=== PATIENT | male | born 1930 | race Caucasian/White ===

== ENCOUNTER 2016-06-21 20:20 | Inpatient (IN) | payer OTHER ==
--- NOTE | ~2016-06-21 | DS ---
Discharge Summary [facility] [address] [place]. [address] NAME: FRANCINE DIEGO : 30 STATUS : DIS IN PAT#: [id number] AGE: 85 ADM/REG DATE : 06/21/16 MR#: [id number] REPORT SERV DATE: 06/24/16 DICTATED BY: LISA STERLING DATE: 06/24/16 REPORT STATUS : Draft TRANSCRIBED BY: MODL DATE: 06/24/16 ADMISSION DATE: 06/21/2016 DISCHARGE DATE: 06/24/2016 REASON FOR ADMISSION: Direct admission from [facility] for pseudocyst. HPI: Please refer to Dr. Price's history and physical dated 06/21/2016 for complete details regarding the patient's admission. In brief, the patient was admitted to the Hospitalist Service for management of his pseudocyst. HOSPITAL COURSE: The patient had an uncomplicated hospital course. The patient had a recent PCI with drug-eluting stent done approximately a week ago by Dr. Chicas for an acute coronary syndrome. At that point in time, he had a CT scan of his chest which did show some pancreatic pseudocysts. He was discharged from [facility] to home and had been doing okay. He then presented to [facility] ER on the 06/21/2016 from his PCP's office after being short of breath and having abdominal pain. They did a CT scan of the abdomen and pelvis without contrast in the emergency room which showed a pseudocyst and the patient was taken as a direct admission for management and evaluation of pseudocyst. Dr. Asencio with GI Medicine was consulted. Records were obtained from [facility]. Dr. Cruz was also consulted who was asked at the request of Dr. Ho to cover the patient while he was in- house. After discussing with Dr. Asencio, the patient needed a pancreatic stent for his pseudocyst, however, it was deemed to be too high risk given the fact that he could not be off his aspirin and Plavix and he just had a drug-eluting stent placed a week ago. Dr. Asencio stated that since the patient was improving, and he did not have any obstructive symptoms, it is best to hold off on doing any type of procedure, especially since the Plavix would need to be held for approximately 10 days, five days preprocedure and then five days after the procedure, and Dr. Asencio had recommended followup in three weeks for discussion and had signed off. The patient remained on aspirin and Plavix throughout the hospitalization. Dr. Price had started him on IV antibiotics for questionable pneumonia, but he did not have one since he did not have any cough or fever or leukocytosis. He did have some mild epigastric pain, but said that he felt much better after getting diuresed and having some bowel movements. He is not complaining of any shortness of breath. He has reached maximal hospitalization and will be discharged to home today in a stable condition. DISCHARGE DIAGNOSES: Acute pancreatitis, resolving pancreatic pseudocyst, too high risk for any intervention at this time; coronary artery disease, status post MD, status post PCI with drug-eluting stent approximately a week ago, currently on aspirin and Plavix, hyperlipidemia, no pneumonia, hypertension, AAA. PROCEDURES: Include consultation, Dr. Asencio and Dr. Cruz. DISCHARGE MEDICATIONS: Include aspirin 81 mg once a day, Lipitor 80 mg daily, carvedilol 3.125 mg twice a day, Plavix 75 mg daily, famotidine twice a day, insulin glargine 10 units twice a day, captopril 6.25 mg daily, metformin 500 mg twice a day, Ventolin p.r.n., Nitrostat p.r.n., [place] p.r.n., Lasix 40 mg alternate one to two tablets every other day. Discharge Summary [address] [address] NAME: FRANCINE DIEGO : 30 STATUS : DIS IN PAT#: [id number] AGE: 85 ADM/REG DATE : 06/21/16 MR#: [id number] REPORT SERV DATE: 06/24/16 DICTATED BY: LISA STERLING DATE: 06/24/16 REPORT STATUS : Draft TRANSCRIBED BY: MODL DATE: 06/24/16 FOLLOWUP: The patient will follow up with Dr. Chicas as scheduled and Leodan TOUSSAINT in three weeks for discussion of a possible stent placement. This is Dr. Lisa Sterling spending over 30 minutes in discharge planning and coordination of care. STEPHANIE/RERE Lisa Sterling MD / [id number] CC: MD Nick Zhao M.D. Chad Charapata, M.D. Calvin Bell, M.D.
--- NOTE | ~2016-06-21 | CN ---
Consultation Report [facility] [address]. [address] NAME: RAFAEL BUSTAMANTE : 30 STATUS : ADM IN PAT#: [id number] AGE: 85 ADM/REG DATE : 06/21/16 MR#: [id number] REPORT SERV DATE: 06/22/16 DICTATED BY: MIKE GOLDBERG DATE: 06/22/16 REPORT STATUS : Draft TRANSCRIBED BY: MODL DATE: 06/22/16 GI CONSULTATION DATE OF CONSULTATION: 06/22/2016 REASON FOR CONSULTATION: Evaluation and management of abdominal pain, CT evidence of large pancreatic pseudocyst. HISTORY OF PRESENT ILLNESS: Mr. Rafael Bustamante is an 85-year-old male patient, who has been seen by Dr. Breen in the past for colonoscopy, who presented to [facility] on 06/21/2016 as a transfer from [facility] secondary to abdominal pain and CT evidence of large pancreatic pseudocyst. The patient has a recent history of being inpatient at [facility] from 06/13/2016 to 06/15/2016. He was admitted there for chest pain. He underwent a cardiac cath with Dr. Chicas, was found to have a blockage requiring drug-eluting stent placement done on 06/14/2016. The patient has a history of previous stents and he is at present on a regimen of Plavix and aspirin. He states that he had some mild abdominal discomfort on admission to [facility], but it worsened after his cardiac catheterization. He did have a CT scan done at [facility] on 06/13/2016. CT of the chest showing pancreatic enlargement and mild peripancreatic soft tissue stranding/small pancreatic calcifications and hypodense masses (fluid density), which may be industrial sales representative of cyst. No pancreatic ductal dilation. LFTs were normal there. No lipase was obtained. The recommendation is for a CT with contrast. He was subsequently discharged. He states that his abdominal pain has worsened thus prompting him to see his primary care physician yesterday who sent him to [facility]'s Emergency Room. He had a CT scan done at [facility] which this is all by reading the history of present illness. The CT was done with IV and oral contrast showing a "huge pseudocyst" which was abutting the stomach with multiple other small pseudocysts in his pancreas, one left renal cyst, questionable sigmoid diverticulosis with questionable diverticulitis, abdominal aortic aneurysm with questionable thrombosis at the abdominal aortic aneurysm, but no official report has been sent. CT disc has been sent. Imaging has been uploaded but not viewed yet. He states to me this morning on rounding that his abdominal distention and pain has improved following three bowel movements. He is still moderately diffusely tender throughout. He was able to tolerate clear liquids. He has a white blood cell count presently at 13.3 and amylase of 246 with a lipase of 4700 and total bilirubin normal at 0.6. The patient states he has a history of pancreatitis five years ago and states "I have never had another problem with it." I have discussed with him that we will await evaluation by Dr. Chicas, his primary java mobile developer, who placed a stent last week, in regard to holding his Plavix and aspirin for the endoscopy with endoscopic ultrasound, possible drain placement. However, this is all dependent upon review of his CT as well as Cardiology input. PAST MEDICAL HISTORY: Positive for pancreatitis, pancreatic calcifications, type 2 diabetes, coronary artery disease, chest pain, recent cardiac cath undergoing drug-eluting stent placement on 06/14/2016 under the direction of Dr. Chicas at [facility], pneumonia, questionable diverticulitis, diverticulosis, colon polyps, CHF, last ejection Consultation Report [address] [address] NAME: RAFAEL BUSTAMANTE : 30 STATUS : ADM IN [facility]#: [id number] AGE: 85 ADM/REG DATE : 06/21/16 MR#: [id number] REPORT SERV DATE: 06/22/16 DICTATED BY: MIKE GOLDBERG DATE: 06/22/16 REPORT STATUS : Draft TRANSCRIBED BY: MODMaryann DATE: 06/22/16 fraction according to records was 20%, and history of TIA. PAST SURGICAL HISTORY: Includes the cardiac cath, appendectomy, and cholecystectomy. SOCIAL HISTORY: Past tobacco. No alcohol. No illicits. and still lives independently with his . FAMILY HISTORY: Noncontributory from a GI standpoint. ALLERGIES: HE HAS NO KNOWN ALLERGIES. HOME MEDICATIONS: Ventolin HFA, aspirin, Lipitor, Capoten, Coreg, Plavix, Pepcid, [place], Lantus, Glucophage, and nitroglycerin. REVIEW OF SYSTEMS: A 10-point review of systems has been obtained with pertinent positives being addressed in the history of present illness. PHYSICAL EXAMINATION: VITAL SIGNS: Temperature 98.4, pulse 80, respirations 17, and blood pressure 108/52. NEUROLOGIC: Reveals an alert male, resting in bed with no focal deficits. Awake, alert, and oriented x3. GENERAL: Cooperative, no acute distress. HEAD, EARS, EYES, NOSE, AND THROAT: Anicteric. Pupils are equal, round, and reactive to light and accommodation. Normocephalic and atraumatic. NECK: Supple. No JVD. No palpable nodes. LUNGS: Clear in the upper lobes. Diminished bilaterally in the bases. Normal respiratory effort exhibited, however, shallow inspiratory effort. CARDIOVASCULAR SYSTEM: Regular rate and rhythm. ABDOMEN: Distended adjm-vo-qnbgrmby with tenderness to palpation, mild diffuse, without rebound or guarding. He has active bowel sounds. No organomegaly was appreciated. EXTREMITIES: No edema. Normal distal pulses. SKIN: Warm, dry, and intact. PERTINENT LABORATORY DATA: Sodium 138, potassium 4.1, BUN 19, creatinine is 1.1. White count 13.3, hemoglobin 9.5, hematocrit 29.5, platelets 259. Total bilirubin 0.6, alkaline phosphatase 86, ALT 13, AST 16, lipase 4705, and amylase 246. ASSESSMENT: 1. Pancreatitis with pancreatic pseudocyst abutting the stomach by CT scan at [facility]. 2. Abdominal pain and distention secondary to #1. 3. Coronary artery disease and chest pain with recent cardiac cath and drug-eluting stent placement on 06/14/2016 at [facility], on dual anti-platelet therapy, Plavix, and aspirin. Consultation Report [address] [place]. [address] NAME: RAFAEL BUSTAMANTE : 30 STATUS : ADM IN PAT#: [id number] AGE: 85 ADM/REG DATE : 06/21/16 MR#: [id number] REPORT SERV DATE: 06/22/16 DICTATED BY: MIKE GOLDBERG DATE: 06/22/16 REPORT STATUS : Draft TRANSCRIBED BY: MODL DATE: 06/22/16 4. Shortness of breath and dyspnea. 5. Abdominal aortic aneurysm. 6. Questionable diverticulitis by CT scan at [facility], presently on Flagyl and Rocephin. PLAN: 1. We will await Cardiology input regarding holding Plavix and aspirin. 2. Follow up CT scan from [facility] with Dr. Asencio. 3. IV fluids, pain and nausea control. We will follow. IVETH/RERE [place] NINFA Greco / [id number] CC: MD Nick Zhao M.D.
--- NOTE | ~2016-06-21 | CN ---
Consultation Report [facility] [address] [place]. [address] NAME: RAFAEL DIEGO : 30 STATUS : ADM IN [facility]#: [id number] AGE: 85 ADM/REG DATE : 06/21/16 MR#: [id number] REPORT SERV DATE: 06/23/16 DICTATED BY: ERON ESCOBAR DATE: 06/22/16 REPORT STATUS : Draft TRANSCRIBED BY: MODL DATE: 06/22/16 DATE OF CONSULTATION: 06/22/2016 REFERRING PHYSICIAN: Dr. Ryan Ho. HISTORY OF PRESENT ILLNESS: Mr. Rafael diego is an 85-year-old gentleman with past medical history significant for coronary artery disease and apparent ischemic cardiomyopathy. He is status post multiple stents. The last reported ejection fraction was approximately 20%. He has a cardiac defibrillator. The patient reports that his most recent stent was done last week by Dr. Chicas secondary to myocardial infarction. He has a stent card which shows this to be a Xience Alpine stent which is an everolimus drug-eluting stent. I was asked to see the patient secondary to a large pancreatic pseudocyst which needs draining. I was asked to address the patient regarding Plavix withdrawal. REVIEW OF SYSTEMS: The patient currently denies any chest pain. He reports that he has some shortness of breath which apparently at his baseline. His main complaint is abdominal pain. He denies any genitourinary or neurologic complaints. PAST MEDICAL HISTORY: As noted above significant for ischemic cardiomyopathy status post multiple stents, most recent which was 06/14/[address] Chicas at [facility]. This was a drug-eluting stent to the circumflex. The patient also with history of implanted cardiac defibrillator. The patient has last ejection fraction approximately 20%. He has remote history of TIA. He has type 2 diabetes. He has had a history of pancreatitis and pancreatic calcifications. The patient is status post appendectomy and cholecystectomy. SOCIAL HISTORY: The patient no longer smokes. FAMILY HISTORY: Noncontributory. ALLERGIES: THE PATIENT HAS NO KNOWN DRUG ALLERGIES. MEDICATIONS: See list. PHYSICAL EXAMINATION: VITAL SIGNS: Stable. The patient is afebrile. GENERAL: This is a well-developed, well-nourished, 85-year-old white male, alert and oriented x3, in no acute distress. NECK: No jugular venous distention, hepatojugular reflux, or carotid bruits. CARDIOVASCULAR: Normal rate with regular rhythm. PMI is inferiorly and laterally displaced. There is a 1/6 systolic murmur heard best at the left upper sternal border. LUNGS: Clear to auscultation. However, breath sounds are diminished in bases. EXTREMITIES: Reveal no clubbing, cyanosis, or edema. ABDOMEN: Slightly distended and mildly tender. Consultation Report [address] [place]. [address] NAME: RAFAEL DIEGO : 30 STATUS : ADM IN PAT#: [id number] AGE: 85 ADM/REG DATE : 06/21/16 MR#: [id number] REPORT SERV DATE: 06/23/16 DICTATED BY: ERON ESCOBAR DATE: 06/22/16 REPORT STATUS : Draft TRANSCRIBED BY: RERE DATE: 06/22/16 EKG shows atrial tracking with ventricular pacing. ASSESSMENT: 1. Pancreatitis with pancreatic pseudocyst. Awaiting intervention by GI. 2. Coronary artery disease status post recent cardiac catheterization with drug-eluting stent, on anti-platelet therapy, Plavix, and aspirin. 3. Congestive heart failure with reduced ejection fraction. 4. Status post automated implantable cardioverter defibrillator. PLAN: If Plavix needs to be discontinued, then the patient will need to be covered with heparin (or Lovenox). It will Plavix approximately 5 days to be back to baseline as far as platelet function. The heparin could then be held the day of the procedure and restart it immediately afterwards. The Plavix should be restarted after things are deemed stable from a GI perspective. I appreciate your consultation on this complex patient. I will follow him with you. /RERE Eron Escobar M.D., [facility] / [id number] CC: MD Nick Zhao M.D. Calvin Bell, M.D. Joseph Sledge III, M.D. Michael C Allan, M.D.
--- NOTE | ~2016-06-21 | HP ---
History And Physical [id number] [place]. [address] NAME: FRANCINE BUSTAMANTE : 30 STATUS : ADM IN PAT#: [id number] AGE: 85 ADM/REG DATE : 06/21/16 MR#: [id number] REPORT SERV DATE: 06/21/16 DICTATED BY: CODY BANKS DATE: 06/21/16 REPORT STATUS : Draft TRANSCRIBED BY: MODL DATE: 06/21/16 DATE OF ADMISSION: 06/21/2016 HISTORY OF PRESENT ILLNESS: The patient is an 85-year-old male who was sent as a direct transfer from [facility]. [facility] physician spoke with Cardiology. The patient basically was seen in [facility] by Dr. Cobb, emergency room doctor, and according to his note, the patient was sent from Dr. Savage's for bradycardia and abdominal distention to [facility]. I also spoke with emergency room physician, Dr. Cobb, later when patient had already arrived here, and he told me that the patient had a CT scan done with IV and oral contrast at [facility] today, and he was found to have a huge pseudocyst which was pressing on his stomach as well as multiple other smaller pseudocysts in his pancreas, 1 left renal cyst, questionable sigmoid diverticulosis with questionable diverticulitis. Also, Dr. Cobb told me that the patient had abdominal aortic aneurysm found on his CT scan which there was a questionable thrombosis on that abdominal aortic aneurysm, but they could not send to me official radiology report printed since it was not read yet, so it was just according to Dr. Cobb' discussion with the radiologist, and I asked them if they can fax to us the official report. I was told that once they have the official report they will fax it to us. They will also send a CT scan disk with imaging study on the disk. The patient also was complaining of shortness of breath, and it was related to his abdominal distention secondary to pancreatic pseudocyst. He denied any chest pain. The patient 1 week ago was at [facility] where he had he had a cardiac stent placement by Dr. Chicas 1 week ago, and he was placed on aspirin and Plavix. This was reported by the patient's and also was recorded in the ER at [facility]. The patient's cannot tell if that stent was drug-eluting or a bare metal stent, but he is currently on aspirin and Plavix. PAST MEDICAL HISTORY: The patient's past medical history was collected from the patient's Parish Bustamante with whom I spoke on the phone. He has a history of pacemaker defibrillator placement, history of coronary artery disease with 2 or 3 heart attacks in the past, congestive heart failure with ejection fraction 20% according to patient's , a small stroke in the past without any significant neurological deficit. He had a pneumonia a week ago according to patient's . He has diabetes mellitus, insulin-dependent. The patient's reported that the patient may have had also abdominal aortic aneurysm in the past. He had stents in the heart before, and his main head start coordinator is Dr. Ryan Ho. His primary care physician is Dr. Savage. PAST SURGICAL HISTORY: Appendectomy and cholecystectomy. ALLERGIES: NO KNOWN DRUG ALLERGIES. SOCIAL HISTORY: He quit smoking 3 years ago. Used to smoke one pack per day. No alcohol. No recreational drug use. History And Physical [address] [address] NAME: FRANCINE BUSTAMANTE : 30 STATUS : ADM IN [facility]#: [id number] AGE: 85 ADM/REG DATE : 06/21/16 MR#: [id number] REPORT SERV DATE: 06/21/16 DICTATED BY: CODY BANKS DATE: 06/21/16 REPORT STATUS : Draft TRANSCRIBED BY: RERE DATE: 06/21/16 FAMILY HISTORY: Mother of a heart attack as well as father of a heart attack. HOME MEDICATIONS: His home medications include: 1. Albuterol one puff inhaled q.4 hours p.r.n. 2. Aspirin 81 mg daily. 3. Lipitor 80 mg daily. 4. Captopril 6.25 daily. 5. Carvedilol 3.125 p.o. b.i.d. 6. Plavix 75 mg a day. 7. Famotidine 20 mg b.i.d. 8. Hydrocodone with acetaminophen one-half to one tablet p.o. twice a day p.r.n. 9. Insulin Lantus 10 units twice a day. 10.Metformin 500 mg p.o. b.i.d. 11.Nitroglycerin 0.4 mg sublingually as needed for chest pain. REVIEW OF SYSTEMS: Positive for shortness of breath. Positive for abdominal pain. No chest pain. Afebrile. No constipation, no diarrhea. All 14-point review of systems done and negative except what is stated in the history of present illness. PHYSICAL EXAMINATION: GENERAL: A well-nourished, well-developed male, not in acute distress. Resting quietly. Complaining of abdominal pain. VITAL SIGNS: Blood pressure 156/76, temperature 98.5, respiratory rate 18, oxygen saturation 95% on room air, and heart rate 89. HEENT: Head atraumatic, normocephalic. Conjunctivae clear. Pupils are equal and reactive to light and accommodation. Extraocular muscles are intact. NECK: Supple. Trachea is midline. No supraclavicular or cervical lymphadenopathy. LUNGS: Diminished breath sounds bilaterally. Decreased respiratory effort. CARDIOVASCULAR: Regular rate and rhythm. Point of maximal impulse not displaced. ABDOMEN: Soft, distended. There is tenderness to palpation in the left upper quadrant. There is no guarding, no rebound. Slightly diminished bowel sounds. EXTREMITIES: No clubbing, cyanosis, or edema. SKIN: Normal color and turgor. NEUROLOGIC: Awake, alert, and oriented in time, place, and person. Muscle strength is 5/5 bilaterally in upper and lower extremities. PSYCHIATRIC: Normal mood and affect. DIAGNOSTIC DATA: Laboratory results which were done at [facility] showed a sodium of 134, potassium 5.3, chloride 99, carbon dioxide 28, blood sugar 251, BUN 20, creatinine 1.04, total protein of 7, calcium 9.4, AST 20, ALT 12, and magnesium 2.2. CK-MB 0.9. White count 14.8, hemoglobin 10.1, hematocrit 32.5, MCV 78, and platelet count 262. PT 15.2, INR 1.4, PTT 24.8, troponin 0.03, and serum myoglobin 59. We also received EKG copy from [facility]. It showed AV dual-paced rhythm with some inhibition, and the heart rate was 73. History And Physical [address] [address] NAME: FRANCINE BUSTAMANTE : 30 STATUS : ADM IN [facility]#: [id number] AGE: 85 ADM/REG DATE : 06/21/16 MR#: [id number] REPORT SERV DATE: 06/21/16 DICTATED BY: CODY BANKS DATE: 06/21/16 REPORT STATUS : Draft TRANSCRIBED BY: RERE DATE: 06/21/16 ASSESSMENT AND PLAN: This is a very pleasant 85-year-old male who is transferred from [facility] with abdominal pain which is related to a gigantic pancreatic pseudocyst according to Dr. Cobb and according to the CT imaging which was done at [facility]. This pseudocyst should be evaluated by a sports team manager. We are going to consult Dr. Asencio as well as the possibility of stent placement will be evaluated by sports team manager. The patient is on aspirin and Plavix because he had a cardiac stent placement one week ago by Dr. Chicas, so we need the head start coordinator's recommendation if the patient is going to have any surgical or GI intervention regarding aspirin and Plavix. Since he had the stent only one week ago, most likely, they need to be continued. We will continue them for today. Dyspnea is likely related to a combination of congestive heart failure and chronic systolic dysfunction with also a large pancreatic pseudocyst pressing on the patient's upper abdomen and causing some difficulty breathing. We are going to order echocardiogram on this patient, and I will also ask old records from Dr. Chicas as well as we will ask head start coordinator Dr. Ho to be consulted on this patient. An abdominal aortic aneurysm according to Dr. Cobb was present on the imaging. Size needs to be evaluated as well as according to Dr. Cobb it was partially thrombosed, needs to be evaluated on the imaging once we have the results. Sigmoid diverticulosis with possible diverticulitis. We will start the patient on intravenous antibiotics since he has leukocytosis. We will put him on Rocephin and Flagyl, and then once the imaging report comes back, there is a possibility it should be re- evaluated by Dr. Sterling. We will also check his pancreatic enzymes since they were not checked in [facility]. Questionable pneumonia. Per patient's , the patient had a pneumonia one week ago. Empiric coverage will be ordered. Currently, the patient does not have any cough. We will order chest x-ray on this patient as well as echocardiogram ordered. The patient had intravenous and oral contrast at [facility]. We will check his kidney function tomorrow. Hypertension. The patient will continue his Coreg. We will hold his lisinopril for tonight. It should be restarted if kidney function stays stable. We will check serial troponins. We will check amylase and lipase on this patient. My colleague Dr. Sterling will see this patient starting tomorrow morning and will consult sports team manager as well. MG/MODL History And Physical [address] [address] NAME: FRANCINE BUSTAMANTE : 30 STATUS : ADM IN PAT#: [id number] AGE: 85 ADM/REG DATE : 06/21/16 MR#: [id number] REPORT SERV DATE: 06/21/16 DICTATED BY: CODY BANKS DATE: 06/21/16 REPORT STATUS : Draft TRANSCRIBED BY: RERE DATE: 06/21/16 Cody Banks M.D. / [id number] CC: MD Nick Zhao M.D. Calvin Bell, M.D.
--- NOTE | ~2016-06-21 | ECH ---
Echocardiogram [id number] [place]. [address] NAME: FRANCINE DIEGO : 30 STATUS : DIS IN PAT#: [id number] AGE: 85 ADM/REG DATE : 06/21/16 MR#: [id number] REPORT SERV DATE: 06/26/16 DICTATED BY: DEBRA BARGER JR. DATE: 06/23/16 REPORT STATUS : Draft TRANSCRIBED BY: MODL DATE: 06/23/16 DATE OF ACQUISITION: 06/23/2016. REFERRING PHYSICIANS: Dr. Boggs and Dr. Price. INDICATIONS: Abdominal aortic aneurysm, pacemaker. TECH: Kurt Orta is the RCS. 2-D INTERPRETATION: M-mode and 2-dimensional echocardiography were performed. The left atrium was normal in size measuring 3.4 cm compared to an aortic root diameter of 3.3 cm. The left ventricle is normal in size measuring 5.4 cm in end-diastole and 4.7 cm in end- systole. Overall, there appeared to be severe reduction of left ventricular systolic function with global hypokinesis and anterior apical dyskinesis as well as delayed septal activation. Ejection fraction is estimated at 25%. Definity contrast imaging agent was utilized to enhance endocardial borders. The aortic valve is trileaflet sclerotic. The mitral valve appears to be structurally normal. The remaining cardiac valves appeared to be structurally normal. The right ventricle was of normal size and dimension. No pericardial or pleural effusion could be seen. Pacemaker ICD leads were noted in the right ventricle and right atrium. DOPPLER/COLOR FLOW: Conventional and Doppler color flow imaging were performed. Mitral inflow patterns suggest grade 2 diastolic dysfunction. There was no aortic stenosis. There was no significant aortic insufficiency. There was trace to mild mitral insufficiency. There was no significant tricuspid insufficiency. CONCLUSION: SEVERE REDUCTION OF LEFT VENTRICULAR SYSTOLIC FUNCTION WITH REGIONAL WALL MOTION ABNORMALITIES DESCRIBED ABOVE. AORTIC VALVE SCLEROSIS WITHOUT STENOSIS. PACEMAKER ICD LEAD IS NOTED. NO OBVIOUS EVIDENCE OF PULMONARY HYPERTENSION CAN BE SEEN. DEFINITY CONTRAST IMAGING AGENT WAS UTILIZED. /RERE Debra Barger Jr., M.D. / [id number] CC: MD Nick Zhao M.D.
[2016-06-21] MEDS ORDERED: GLUCPH PO (21:10)
[2016-06-21] MEDS ORDERED: LIPITOR40 PO (21:10)
[2016-06-21] MEDS ORDERED: CAP12.5 PO (21:10)
[2016-06-21] MEDS ORDERED: VENTOLIN HFA INH (21:10)
[2016-06-21] MEDS ORDERED: NITROSTAT0.4 MG SL (21:10)
[2016-06-21] MEDS ORDERED: COREG3 PO (21:10)
[2016-06-21] MEDS ORDERED: LANTUS SC (21:11)
[2016-06-21] MEDS ORDERED: HALF81 PO (21:11)
[2016-06-21] MEDS ORDERED: NORCO1 TA1 PO (21:11)
[2016-06-21] MEDS ORDERED: PEP20 PO (21:11)
[2016-06-21] MEDS ORDERED: PLAVIX PO (21:11)
[2016-06-22 00:01] LABS: HEMATOCRIT 29.8 % (40.0-51.0); HEMOGLOBIN 9.8 g/dL (13.6-17.8); MEAN CORPUS HGB CONC 32.9 g/dL (32.0-36.0); MEAN CORPUSCULAR HEMOGLOB 25.3 pg (26.0-34.0); MEAN PLATELET VOLUME 11.1 fL (9.2-13.0); PLATELET COUNT 258 10/3/uL (150-400); RBC DISTRIBUTION WIDTH 17.9 % (12.0-16.0); RED CELL COUNT 3.87 10/6/uL (4.7-6.1); WHITE BLOOD CELLS 12.4 10/3/uL (4.5-10.5)
[2016-06-22 00:10] LABS: MANUAL DIFF YES %
[2016-06-22 00:47] LABS: TROPONIN I 0.02 NG/ML (<0.05); ULTRASENSITIVE TSH 2.6 MCIU/ML (0.358-3.740)
[2016-06-22 00:51] LABS: BAND NEUTROPHILS 1 %; LYMPHOCYTES 9 %; LYMPHOCYTES ABSOLUTE (CALC) 1.12 10/3/uL (0.67-4.30); MONOCYTES 4 %; NEUTROPHILS ABSOLUTE (CALC) 10.79 10/3/uL (2.02-8.40); PLATELET ESTIMATE ADQ (ADEQUATE); SEGMENTED NEUTROPHIL (0) 86 %; TOTAL NUCLEATED CELLS 100
[2016-06-22 00:52] LABS: ACANTHOCYTES FEW (3-10/OIF)
[2016-06-22 01:13] LABS: PROCALCITONIN 0.26 ng/mL (<0.5)
[2016-06-22 06:28] LABS: HEMATOCRIT 29.5 % (40.0-51.0); HEMOGLOBIN 9.5 g/dL (13.6-17.8); MEAN CORPUS HGB CONC 32.2 g/dL (32.0-36.0); MEAN CORPUSCULAR HEMOGLOB 25.1 pg (26.0-34.0); MEAN CORPUSCULAR VOLUME 77.8 fL (80-100); MEAN PLATELET VOLUME 10.4 fL (9.2-13.0); PLATELET COUNT 259 10/3/uL (150-400); RBC DISTRIBUTION WIDTH 17.7 % (12.0-16.0); RED CELL COUNT 3.79 10/6/uL (4.7-6.1); WHITE BLOOD CELLS 13.3 10/3/uL (4.5-10.5)
[2016-06-22 06:33] LABS: MANUAL DIFF YES %
[2016-06-22 06:37] LABS: A/G RATIO 0.4 (0.7-1.9); ALBUMIN 1.7 G/DL (3.5-5.0); ALKALINE PHOSPHATASE 86 U/L (45-117); BUN (BLOOD UREA NITROGEN) 19 MG/DL (6-23); CALCIUM, SERUM 8.9 MG/DL (8.5-10.4); CHLORIDE, SERUM 104 MMOL/L (96-112); CO2 (CARBON DIOXIDE) 29 MMOL/L (24-34); GFR AFRICAN AMERICAN 71 ML/MIN (>=60); GFR NON AFRICAN AMERICAN 61 ML/MIN (>=60); GLOBULIN 4.6 G/DL (2.5-4.1); GLUCOSE, SERUM 201 MG/DL (60-99); POTASSIUM, SERUM 4.1 MMOL/L (3.5-5.3); SGOT(AST) 16 U/L (5-40); SGPT(ALT) 13 U/L (5-65); SODIUM, SERUM 138 MMOL/L (135-148); TOTAL BILIRUBIN 0.6 MG/DL (0-1.2); TOTAL PROTEIN 6.3 G/DL (6.0-8.5); TROPONIN I <0.02 NG/ML (<0.05)
[2016-06-22 07:33] LABS: ANISOCYTOSIS 1+ (5-10/OIF) (0-5/OIF); BAND NEUTROPHILS 6 %; EOSINOPHILS 2 %; EOSINOPHILS ABSOLUTE (CALC) 0.27 10/3/uL (0.0-0.53); LYMPHOCYTES 7 %; LYMPHOCYTES ABSOLUTE (CALC) 0.93 10/3/uL (0.67-4.30); MONOCYTES 2 %; MONOCYTES ABSOLUTE (CALC) 0.27 10/3/uL (0.21-1.20); NEUTROPHILS ABSOLUTE (CALC) 11.84 10/3/uL (2.02-8.40); PLATELET ESTIMATE ADQ (ADEQUATE); POIKILOCYTOSIS 1+ (5-10/OIF) (0-5/OIF); SEGMENTED NEUTROPHIL (0) 83 %; TOTAL NUCLEATED CELLS 100
[2016-06-22 07:34] LABS: ACANTHOCYTES OCC (0-2/OIF); POLYCHROMASIA 1+ (2-5/OIF) (0-1/OIF); SCHISTOCYTES OCC (0-2/OIF)
[2016-06-23 06:36] LABS: BASOPHILS 0.1 %; BASOPHILS ABSOLUTE 0.02 10/3/uL (0.0-0.16); EOSINOPHILS 0.7 %; EOSINOPHILS ABSOLUTE 0.09 10/3/uL (0.0-0.53); HEMATOCRIT 29.7 % (40.0-51.0); HEMOGLOBIN 9.4 g/dL (13.6-17.8); IMMATURE GRANULOCYTES 0.4 %; IMMATURE GRANULOCYTES ABSOLUTE 0.06 10/3/uL (0.0-0.11); LYMPHOCYTES 4.4 %; MEAN CORPUS HGB CONC 31.6 g/dL (32.0-36.0); MEAN CORPUSCULAR HEMOGLOB 24.9 pg (26.0-34.0); MEAN CORPUSCULAR VOLUME 78.8 fL (80-100); MONOCYTES 5.9 %; MONOCYTES ABSOLUTE 0.81 10/3/uL (0.21-1.20); NEUTROPHILS 88.5 %; NEUTROPHILS ABSOLUTE 12.05 10/3/uL (2.02-8.40); PLATELET COUNT 290 10/3/uL (150-400); RBC DISTRIBUTION WIDTH 17.9 % (12.0-16.0); RED CELL COUNT 3.77 10/6/uL (4.7-6.1); WHITE BLOOD CELLS 13.6 10/3/uL (4.5-10.5)
[2016-06-23 06:40] LABS: MANUAL DIFF NO %
[2016-06-23 06:55] LABS: A/G RATIO 0.4 (0.7-1.9); ALBUMIN 1.8 G/DL (3.5-5.0); ALKALINE PHOSPHATASE 88 U/L (45-117); BUN (BLOOD UREA NITROGEN) 19 MG/DL (6-23); CALCIUM, SERUM 9.1 MG/DL (8.5-10.4); CHLORIDE, SERUM 105 MMOL/L (96-112); CO2 (CARBON DIOXIDE) 30 MMOL/L (24-34); DIRECT BILIRUBIN 0.1 MG/DL (0.0-0.4); GFR AFRICAN AMERICAN 71 ML/MIN (>=60); GFR NON AFRICAN AMERICAN 61 ML/MIN (>=60); GLOBULIN 4.7 G/DL (2.5-4.1); INDIRECT BILIRUBIN(NOT ORDER) 0.3 MG/DL (0.1-0.9); POTASSIUM, SERUM 3.6 MMOL/L (3.5-5.3); SGOT(AST) 17 U/L (5-40); SGPT(ALT) 13 U/L (5-65); SODIUM, SERUM 141 MMOL/L (135-148); TOTAL BILIRUBIN 0.4 MG/DL (0-1.2); TOTAL PROTEIN 6.5 G/DL (6.0-8.5)
[2016-06-23 06:58] LABS: GLUCOSE, SERUM 85 MG/DL (60-99)
[2016-06-24 07:42] LABS: BASOPHILS 0.1 %; BASOPHILS ABSOLUTE 0.02 10/3/uL (0.0-0.16); EOSINOPHILS 1.3 %; EOSINOPHILS ABSOLUTE 0.17 10/3/uL (0.0-0.53); HEMATOCRIT 28.9 % (40.0-51.0); HEMOGLOBIN 9.5 g/dL (13.6-17.8); IMMATURE GRANULOCYTES 0.2 %; IMMATURE GRANULOCYTES ABSOLUTE 0.03 10/3/uL (0.0-0.11); LYMPHOCYTES 5.1 %; LYMPHOCYTES ABSOLUTE 0.69 10/3/uL (0.67-4.30); MANUAL DIFF NO %; MEAN CORPUS HGB CONC 32.9 g/dL (32.0-36.0); MEAN CORPUSCULAR HEMOGLOB 25.2 pg (26.0-34.0); MEAN CORPUSCULAR VOLUME 76.7 fL (80-100); MEAN PLATELET VOLUME 10.7 fL (9.2-13.0); MONOCYTES ABSOLUTE 0.81 10/3/uL (0.21-1.20); NEUTROPHILS 87.3 %; NEUTROPHILS ABSOLUTE 11.73 10/3/uL (2.02-8.40); PLATELET COUNT 327 10/3/uL (150-400); RBC DISTRIBUTION WIDTH 17.9 % (12.0-16.0); RED CELL COUNT 3.77 10/6/uL (4.7-6.1); WHITE BLOOD CELLS 13.5 10/3/uL (4.5-10.5)
[2016-06-24 08:01] LABS: A/G RATIO 0.4 (0.7-1.9); ALBUMIN 1.8 G/DL (3.5-5.0); ALKALINE PHOSPHATASE 98 U/L (45-117); BUN (BLOOD UREA NITROGEN) 16 MG/DL (6-23); CALCIUM, SERUM 8.8 MG/DL (8.5-10.4); CHLORIDE, SERUM 106 MMOL/L (96-112); CO2 (CARBON DIOXIDE) 28 MMOL/L (24-34); CREATININE 1.05 MG/DL (0.70-1.30); GFR AFRICAN AMERICAN 75 ML/MIN (>=60); GFR NON AFRICAN AMERICAN 64 ML/MIN (>=60); GLOBULIN 4.8 G/DL (2.5-4.1); POTASSIUM, SERUM 3.6 MMOL/L (3.5-5.3); SGOT(AST) 16 U/L (5-40); SGPT(ALT) 10 U/L (5-65); SODIUM, SERUM 141 MMOL/L (135-148); TOTAL BILIRUBIN 0.3 MG/DL (0-1.2); TOTAL PROTEIN 6.6 G/DL (6.0-8.5)
[2016-06-24 08:03] LABS: GLUCOSE, SERUM 125 MG/DL (60-99); PHOSPHORUS, SERUM 2.1 MG/DL (2.5-4.5)
[2016-06-24] MEDS ORDERED: L40 PO ×2 (11:41→11:49)
== END 2016-06-24 12:17 | disposition home or self-care (01) | DRG 439 ==
LOC: 5SO 20:20
PROVIDERS: Hospitalist; Internal Medicine; Nurse Practitioner Family
DX: K85.90 Acute pancreatitis without necrosis or infection, unspecified (principal); K86.3 Pseudocyst of pancreas; I50.22 Chronic systolic (congestive) heart failure; E11.9 Type 2 diabetes mellitus without complications; I25.5 Ischemic cardiomyopathy; I25.10 Atherosclerotic heart disease of native coronary artery without angina pectoris; I71.4 Abdominal aortic aneurysm, without rupture; I10 Essential (primary) hypertension; K57.30 Diverticulosis of large intestine without perforation or abscess without bleeding; Z95.5 Presence of coronary angioplasty implant and graft; Z79.82 Long term (current) use of aspirin; Z79.02 Long term (current) use of antithrombotics/antiplatelets; Z95.810 Presence of automatic (implantable) cardiac defibrillator; Z79.4 Long term (current) use of insulin; Z87.891 Personal history of nicotine dependence
CPT/HCPCS: 71010; 80053; 80076; 82150; 82962; 83690; 83735; 83880; 84100; 84145; 84443; 84484; 85025; 87040; 93005; A9270-GY; C8929; Q9957

== ENCOUNTER 2016-07-07 17:36 | Inpatient (IN) | payer OTHER ==
--- NOTE | ~2016-07-07 | HP ---
History And Physical [address] [facility] [place]. [address] NAME: FRANCINE BUSTAMANTE : 30 STATUS : ADM IN PAT#: [id number] AGE: 85 ADM/REG DATE : 07/07/16 MR#: [id number] REPORT SERV DATE: 07/07/16 DICTATED BY: JR. WEBER WILLIAM JOHN DATE: 07/07/16 REPORT STATUS : Draft TRANSCRIBED BY: RERE DATE: 07/07/16 DATE OF ADMISSION: 07/07/2016 ROLL HAND: Chandra Barger M.D. and also sees Dr. Chicas. GASTROENTEROLOGY: [facility]. HISTORY OF PRESENT ILLNESS: An 85-year-old male sent from [facility] for pseudocyst and dehydration. I was contacted by Dr. Castro, an ER physician in [facility] who relays the following information. The patient had a drug-eluting stent placed approximately three weeks ago by Dr. Chicas at [facility]. The patient then presented to [facility] emergency room on 06/21, had a CT that showed a pseudocyst and acute pancreatitis and subsequently transferred to [facility] for the new finding of pancreatitis and pseudocyst. The patient was admitted under the service of Dr. Lyle Sterling, was evaluated by Dr. Asencio of Gastroenterology who felt a pancreatic stent may be in order; however, the patient was at such high risk given his need for dual antiplatelet therapy with the new drug-eluting stent. The patient was treated symptomatically and discharged home on 06/24. He then re-presented to [facility] today. The patient is a very poor historian. I tried to call his , Parish Bustamante, at [phone] but got no answer. The patient relays that he has become weaker and weaker and has lost 30 pounds in the past month. He says it hurts to eat, he points to his epigastrium with radiation to the chest. His emergency room documentation from [facility] says that chest pain was one of his presenting symptoms; however, the patient points to his stomach when asked about chest pain. He also says he has been coughing for several weeks, it is nonproductive. He denies fevers or chills but does admit to short shortness of breath. PAST MEDICAL HISTORY: Includes, 1. Chronic systolic heart failure with an ejection fraction 20% on echocardiogram from last week. 2. Status post permanent pacemaker and AICD. 3. Coronary artery disease with myocardial infarction in the past, had multiple stents placed. Most recently, had a drug-eluting stent on 06/21/[address] Chicas at [facility]. 4. History of stroke without significant deficit. 5. Insulin-requiring diabetes mellitus. 6. History of abdominal aortic aneurysm. 7. Appendectomy. 8. Cholecystectomy. 9. Hyperlipidemia. HOME MEDICATIONS: Include, 1. Albuterol 1 puff every four hours as needed. 2. Aspirin 81 mg daily. 3. Lipitor 40 mg daily. History And Physical [address] [address] NAME: FRANCINE BUSTAMANTE : 30 STATUS : ADM IN [facility]#: [id number] AGE: 85 ADM/REG DATE : 07/07/16 MR#: [id number] REPORT SERV DATE: 07/07/16 DICTATED BY: JR. WEBER WILLIAM JOHN DATE: 07/07/16 REPORT STATUS : Draft TRANSCRIBED BY: RERE DATE: 07/07/16 4. Captopril 6.25 mg daily. 5. Coreg 3.125 mg orally twice a day. 6. Plavix 75 mg daily. 7. CoQ 300 mg daily. 8. Welchol 1875 mg three times a day. 9. Lasix 40 mg orally daily. 10.Moon 5/325 one half to one tablet twice a day as needed. 11.Lantus insulin 20 units at bedtime. 12.Metformin 500 mg daily. 13.Nitroglycerin 0.4 mg sublingually as needed. 14.Potassium chloride 10 mEq twice a day. ALLERGIES: DENIES ALL ALLERGIES. FAMILY HISTORY: Mother at age 96 from myocardial infarction. Father age 76 from myocardial infarction. SOCIAL HISTORY: Lives in [place], [place] with his . He is a retired power wireline operator. He says he smoked one-half pack per day years ago, but quit 40 years ago. Denies alcohol or illicit drugs. REVIEW OF SYSTEMS: It is negative in all 12 systems reviewed except does admit a 30-pound weight loss in past month, hardness of hearing, chest/epigastric pain. Also admits to cough with shortness of breath, nausea, alternating diarrhea and constipation, and history of stroke. Code status was discussed with the patient in the event of cardiopulmonary arrest, he desires no attempt at resuscitation. PHYSICAL EXAMINATION: VITAL SIGNS: Temperature 97.3, blood pressure 122/63, heart rate 77, respiratory rate of 18, saturation 93% on 2 L nasal cannula. GENERAL: The patient is alert, oriented, in no acute distress. He seemed to be a fairly reliable historian, however, was poor at relating his thoughts. HEENT: Pupils are equal, round, to light. Extraocular motion intact. Sclerae anicteric. Oropharynx clear. NECK: Supple without jugular venous distention, thyromegaly, or bruits. LUNGS: Rales in the right upper field. There are no crackles. There is symmetrical chest rise. CARDIOVASCULAR: S1, S2 were auscultated. No gallop, murmur, or rub. There is a pacemaker in the chest. ABDOMEN: Tender in the epigastrium without guarding or rebound. Bowel sounds present. EXTREMITIES: Showed no clubbing, cyanosis, edema. NEUROLOGIC: Cranial nerves 2 through 12 are intact. Strength and sensation are full and equal throughout. Lymph node survey is negative in cervical and supraclavicular region. DERMATOLOGIC: There is no rash or other lesion, did have a tattoo across his upper stomach, it said one night with you. Also had a well-healed cholecystectomy scar in the right upper History And Physical [address] [address] NAME: FRANCINE BUSTAMANTE : 30 STATUS : ADM IN [facility]#: [id number] AGE: 85 ADM/REG DATE : 07/07/16 MR#: [id number] REPORT SERV DATE: 07/07/16 DICTATED BY: JR. WEBER WILLIAM JOHN DATE: 07/07/16 REPORT STATUS : Draft TRANSCRIBED BY: MOD DATE: 07/07/16 quadrant. LABORATORY DATA: From [facility] showed a lipase of 102, which is elevated; amylase of 62, which is normal. Troponin I 0.01. B-type natriuretic peptide of 325. Sodium 132, potassium 4.6, chloride 94, bicarb 31, BUN 34, creatinine 1.2, glucose 269, total protein 7.2, albumin 2.8, calcium 9.2, total bilirubin 0.3, alkaline phosphatase 80, SGOT of 18, SGPT of 10, white count of 11.2, hemoglobin 10.2, platelets 355. Echocardiogram from 06/23/2016 at [facility] showed an ejection fraction of 20%. No other significant abnormalities. EKG showed a paced rhythm at rate of 73. ASSESSMENT AND PLAN: An 85-year-old white male with. 1. Abdominal pain with history of acute pancreatitis and possible pseudocyst evaluated by Dr. Asencio 1-2 weeks ago. We will provide analgesia with IV and p.o. pain medication and place him on a clear liquid diet. 2. Acute pancreatitis with mildly elevated lipase. His bilirubin is normal. However, he does have significant pain, pain with eating, and significant weight loss. We will place patient on a clear liquid diet. We will give IV fluids, analgesia, ask GI to see the patient. We will check a CT of his abdomen and pelvis to establish a trend on his reported pseudocyst. 3. 30-pound weight loss in one month. Given that he has pain with eating, may need a distal feeding tube, however, will defer that decision to Gastroenterology. 4. Chronic systolic heart failure, seems compensated on TERRENCE inhibitor. 5. Cough. Will continue inhaled medications, put him on oxygen and bronchodilator protocol and check a chest x-ray. 6. Reported chest pain. EKG shows paced rhythm. Initial troponin was negative. We will check 2 more troponins. 7. Status post permanent pacemaker/AICD. 8. Coronary artery disease with a recent drug-eluting stent placed 06/21/2016, and the patient will need dual antiplatelet therapy. 9. Insulin-dependent diabetes mellitus, on long-acting insulin at home. We will place him on sliding scale initially here and stop his metformin given the need for IV contrast studies. 10.DNAR status. 11.I will follow this patient. WJF/MODL Conner Weber Jr, MD / [id number] CC: Conner Weber Jr, MD Mahmood Siddiqui, M.D.
--- NOTE | ~2016-07-07 | DS ---
Discharge Summary [facility] [address] [place]. [address] NAME: FRANCINE DIEGO : 30 STATUS : DIS IN PAT#: [id number] AGE: 85 ADM/REG DATE : 07/07/16 MR#: [id number] REPORT SERV DATE: 07/14/16 DICTATED BY: AUDREY SANTIAGO DATE: 07/13/16 REPORT STATUS : Draft TRANSCRIBED BY: MODL DATE: 07/13/16 ADMISSION DATE: 07/07/2016 DISCHARGE DATE: 07/13/2016 DISCHARGE DIAGNOSES: 1. Acute pancreatitis with pseudocyst and nonoperable at this point due to the dual antiplatelet therapy from the recent drug-eluting stent. 2. Coronary artery disease with a recent drug-eluting stent. 3. Chronic heart failure with systolic dysfunction. CONSULTANTS: 1. Lexa Breen M.D. 2. Conner Asencio M.D. HISTORY OF PRESENT ILLNESS: This is an 85-year-old male patient, who had recent hospitalization on 06/24/2016 of discharge day he came back to the hospital. When he presented to [facility] with abdominal pain and generalized weakness. Please see dictated H and P. HOSPITAL COURSE: He was admitted to the hospital with acute pancreatitis with pseudocyst which was already evaluated about a month ago and at that time, he was told and decided not a candidate for any procedure due to ongoing dual antiplatelet therapy for the recent drug eluted stent. However, he re-presented to local emergency room with generalized weakness with his abdominal pain. Therefore, the patient was transferred again to this facility and had a re-evaluation with a forming mill operator. They said, the patient will need to be off the Plavix certain time before the procedure which is not a good medical decision for his recent drug eluted stent. Therefore, the patient was told that we will need to continue the pain control until that he is able to get off the dual antiplatelet therapy. He and his voiced understanding. He is taking hydrocodone for his pain control a little more often than before, and fortunately the patient was able to advance the diet to mechanical soft diet with four times a day protein shakes. I explained to the patient, and they all voiced understanding regarding the current medical condition and he has been tolerating his diet here and maximized inpatient benefit, so the patient will be discharged to home with resuming home health and home PT. He is going to use the hydrocodone 5 mg as a pain control, he is taking mostly three or two times a day. Recommended having stool softener as well. Continuing all other home medications includin. Aspirin 81 mg once a day. 2. Lipitor 40 mg once at nighttime. 3. Captopril 6.25 mg once a day. 4. Coreg 3.125 mg twice a day. 5. Plavix 75 mg once a day. 6. Coenzyme Q once a day. 7. Lasix 40 mg once a day. 8. Lantus 20 units at night. 9. Ventolin as needed. 10.Pepcid 20 mg twice a day. Discharge Summary [address] [address] NAME: FRANCINE DIEGO : 30 STATUS : DIS IN PAT#: [id number] AGE: 85 ADM/REG DATE : 07/07/16 MR#: [id number] REPORT SERV DATE: 07/14/16 DICTATED BY: AUDREY SANTIAGO DATE: 07/13/16 REPORT STATUS : Draft TRANSCRIBED BY: RERE DATE: 07/13/16 11.Metformin was discontinued. 12.MiraLAX powder once a day. 13.Hydrocodone 5 mg for pain control. DISPOSITION: The patient is discharged to home with home health. TIME SPENT: More than 30 minutes. DICTATED BY: Agnes Hurtado/RERE Audrey Santiago M.D. / [id number] CC: Audrey Santiago M.D.
--- NOTE | ~2016-07-07 | CN ---
Consultation Report [facility] [address] [place]. [address] NAME: FRANCINE DIEGO : 30 STATUS : ADM IN [facility]#: [id number] AGE: 85 ADM/REG DATE : 07/07/16 MR#: [id number] REPORT SERV DATE: 07/08/16 DICTATED BY: LEXA BREEN DATE: 07/08/16 REPORT STATUS : Draft TRANSCRIBED BY: MODL DATE: 07/08/16 GI CONSULT DATE OF CONSULTATION: 07/08/2016 REASON FOR CONSULTATION: Regarding pancreatitis and pseudocyst with epigastric pain. HISTORY OF PRESENT ILLNESS: This is an 85-year-old man, who presented with increasing epigastric pain and weight loss of at least 10 pounds over the past one month. He is not eating very much and does have epigastric pain after eating anything even small amounts. He has had no vomiting or dysphagia. No diarrhea, constipation, melena, or hematochezia. He has previous diagnosis pancreatitis with pseudocyst. Also recent drug- eluting cardiac stent, 06/21/2016. MEDICAL HISTORY: CHF, EF 20%. Pacemaker and ICD placement. CAD status post recent drug- eluting stent 06/21/2016, Dr. Chicas. History of stroke, diabetes, abdominal aortic aneurysm 4.[address], appendectomy, cholecystectomy, hyperlipidemia. ALLERGIES: NONE. MEDICATIONS: Albuterol, aspirin, Lipitor, captopril, Coreg, Plavix, coenzyme Q10, WelChol, Lasix, [place], insulin, Glucophage, Nitrostat, potassium. SOCIAL HISTORY: Does not use alcohol or tobacco significantly. FAMILY HISTORY: Negative for GI malignancy. REVIEW OF SYSTEMS: A complete review of systems was obtained and negative except that noted in the history of present illness. PHYSICAL EXAMINATION: VITAL SIGNS: He is currently afebrile. Temperature is 97.6, pulse 72, respirations 16, blood pressure 106/56. HEENT: Sclerae anicteric. NECK:Supple without lymphadenopathy. Pharynx is pink without exudate. LUNGS: Clear to auscultation bilaterally. HEART: Regular rate and rhythm. S1, S2 heard without rubs or gallops. ABDOMEN: Normal bowel sounds. Belly is soft and nondistended. There is mild epigastric tenderness without rebound or guarding. No hepatosplenomegaly is detected. EXTREMITIES: No pedal edema or rash. NEUROLOGIC: Alert and oriented without focal deficit. Muscle exam is nontender. DATA: White blood cell count 9.7, hematocrit 32, MCV is 79.2, platelets 367. BUN is 29 Consultation Report [facility] [id number] [place]. [address] NAME: FRANCINE DIEGO : 30 STATUS : ADM IN PAT#: [id number] AGE: 85 ADM/REG DATE : 07/07/16 MR#: [id number] REPORT SERV DATE: 07/08/16 DICTATED BY: LEXA BREEN DATE: 07/08/16 REPORT STATUS : Draft TRANSCRIBED BY: MODMaryann DATE: 07/08/16 creatinine 1.18. Liver tests are normal. Lipase 449. Troponin negative. TSH 4.58. CT shows 13 cm pseudocyst abutting the wall of the stomach. IMPRESSION: 1. Acute pancreatitis with pseudocyst. 2. Epigastric pain with weight loss, likely due to the above. 3. Congestive heart failure, ejection fraction 20%. 4. Coronary artery disease status post recent drug-eluting stent. RECOMMENDATIONS: 1. Start Glucerna twice daily for nutrition. 2. We will discuss with the [facility] regarding change that we will discuss with Dr. Asencio and Dr. Nix regarding the possible pseudocyst drainage. However, this may be difficult while the patient is requiring anticoagulation. Discussed this with family and the patient. 3. In the meantime, support with intravenous fluids and nutrition. CC/NESSAL Lexa Breen M.D. / [id number] CC: Conner Tineo Jr, MD
[~2016-07-07 17:36] MED LIST: CAP12.5 PO; COREG3 PO; GLUCPH PO; HALF81 PO; L40 PO; LANTUS SC; LIPITOR40 PO; NITROSTAT0.4 MG SL; NORCO1 TA1 PO; PEP20 PO; PLAVIX PO; VENTOLIN HFA INH
[2016-07-07] MEDS ORDERED: PRILO PO (18:11)
[2016-07-07] MEDS ORDERED: K-TABS10 MEQ PO (18:15)
[2016-07-07] MEDS ORDERED: WELCHOL625 MG PO (18:15)
[2016-07-07] MEDS ORDERED: ASAB PO (18:16)
[2016-07-07] MEDS ORDERED: CO Q-10100 MG PO (18:16)
[2016-07-07 20:55] LABS: TROPONIN I <0.02 NG/ML (<0.05)
[2016-07-07 21:23] LABS: CREATININE 1.28 MG/DL (0.70-1.30); GFR AFRICAN AMERICAN 59 ML/MIN (>=60); GFR NON AFRICAN AMERICAN 51 ML/MIN (>=60)
[2016-07-08 01:28] LABS: BASOPHILS 0.3 %; BASOPHILS ABSOLUTE 0.03 10/3/uL (0.0-0.16); HEMOGLOBIN 10.1 g/dL (13.6-17.8); IMMATURE GRANULOCYTES 0.3 %; IMMATURE GRANULOCYTES ABSOLUTE 0.03 10/3/uL (0.0-0.11); LYMPHOCYTES 14.2 %; LYMPHOCYTES ABSOLUTE 1.37 10/3/uL (0.67-4.30); MEAN CORPUS HGB CONC 31.6 g/dL (32.0-36.0); MEAN PLATELET VOLUME 10.2 fL (9.2-13.0); MONOCYTES 8.7 %; MONOCYTES ABSOLUTE 0.84 10/3/uL (0.21-1.20); NEUTROPHILS 75.5 %; PLATELET COUNT 367 10/3/uL (150-400); RBC DISTRIBUTION WIDTH 17.8 % (12.0-16.0); RED CELL COUNT 4.04 10/6/uL (4.7-6.1); WHITE BLOOD CELLS 9.7 10/3/uL (4.5-10.5)
[2016-07-08 01:38] LABS: MANUAL DIFF NO %; MEAN CORPUSCULAR VOLUME 79.2 fL (80-100)
[2016-07-08 01:46] LABS: A/G RATIO 0.4 (0.7-1.9); CALCIUM, SERUM 8.6 MG/DL (8.5-10.4); CHLORIDE, SERUM 103 MMOL/L (96-112); CO2 (CARBON DIOXIDE) 32 MMOL/L (24-34); CREATININE 1.18 MG/DL (0.70-1.30); GFR AFRICAN AMERICAN 65 ML/MIN (>=60); GFR NON AFRICAN AMERICAN 56 ML/MIN (>=60); GLOBULIN 4.8 G/DL (2.5-4.1); SGOT(AST) 20 U/L (5-40); SGPT(ALT) 15 U/L (5-65); SODIUM, SERUM 142 MMOL/L (135-148); TOTAL BILIRUBIN 0.3 MG/DL (0-1.2); TOTAL PROTEIN 6.8 G/DL (6.0-8.5)
[2016-07-08 01:47] LABS: ALKALINE PHOSPHATASE 84 U/L (45-117); BUN (BLOOD UREA NITROGEN) 29 MG/DL (6-23); GLUCOSE, SERUM 151 MG/DL (60-99); POTASSIUM, SERUM 4.5 MMOL/L (3.5-5.3)
[2016-07-08] MEDS ORDERED: NORCO1 TA1 PO (02:21)
[2016-07-08] MEDS ORDERED: MEGACEUDL PO (02:24)
[2016-07-08] MEDS ORDERED: L40 PO (02:24)
[2016-07-08] MEDS ORDERED: CIP5 PO (02:25)
[2016-07-08] MEDS ORDERED: KDUR10 PO (02:26)
[2016-07-08] MEDS ORDERED: PEP20 PO (02:27)
[2016-07-08] MEDS ORDERED: PLAVIX PO (02:27)
[2016-07-08] MEDS ORDERED: VENTOLIN HFA INH (02:28)
[2016-07-08] MEDS ORDERED: NITROSTAT0.4 MG SL (02:28)
[2016-07-08] MEDS ORDERED: ASAB PO (02:28)
[2016-07-08] MEDS ORDERED: CAP12.5 PO (02:29)
[2016-07-08] MEDS ORDERED: FORTAMET500 MG PO (02:30)
[2016-07-08] MEDS ORDERED: LIPITOR40 PO (02:31)
[2016-07-08] MEDS ORDERED: COREG3 PO (02:31)
[2016-07-08] MEDS ORDERED: CO Q-10100 MG PO (02:31)
[2016-07-08] MEDS ORDERED: LANTUS SC (02:32)
[2016-07-09 04:42] LABS: BASOPHILS 0.4 %; BASOPHILS ABSOLUTE 0.03 10/3/uL (0.0-0.16); EOSINOPHILS 1.5 %; EOSINOPHILS ABSOLUTE 0.12 10/3/uL (0.0-0.53); HEMOGLOBIN 8.5 g/dL (13.6-17.8); IMMATURE GRANULOCYTES 0.4 %; IMMATURE GRANULOCYTES ABSOLUTE 0.03 10/3/uL (0.0-0.11); LYMPHOCYTES ABSOLUTE 1.26 10/3/uL (0.67-4.30); MEAN CORPUS HGB CONC 30.4 g/dL (32.0-36.0); MEAN CORPUSCULAR HEMOGLOB 24.7 pg (26.0-34.0); MEAN CORPUSCULAR VOLUME 81.4 fL (80-100); MEAN PLATELET VOLUME 10.3 fL (9.2-13.0); MONOCYTES 7.6 %; NEUTROPHILS 74.1 %; NEUTROPHILS ABSOLUTE 5.83 10/3/uL (2.02-8.40); RBC DISTRIBUTION WIDTH 18.3 % (12.0-16.0); RED CELL COUNT 3.44 10/6/uL (4.7-6.1); WHITE BLOOD CELLS 7.9 10/3/uL (4.5-10.5)
[2016-07-09 04:43] LABS: MANUAL DIFF NO %; PLATELET COUNT 256 10/3/uL (150-400)
[2016-07-09 04:54] LABS: CALCIUM, SERUM 8.1 MG/DL (8.5-10.4); CHLORIDE, SERUM 111 MMOL/L (96-112); CO2 (CARBON DIOXIDE) 28 MMOL/L (24-34); CREATININE 0.85 MG/DL (0.70-1.30); GFR AFRICAN AMERICAN 92 ML/MIN (>=60); GFR NON AFRICAN AMERICAN 79 ML/MIN (>=60); GLUCOSE, SERUM 147 MG/DL (60-99); POTASSIUM, SERUM 4.1 MMOL/L (3.5-5.3); SODIUM, SERUM 141 MMOL/L (135-148)
[2016-07-09 04:55] LABS: BUN (BLOOD UREA NITROGEN) 19 MG/DL (6-23)
[2016-07-09 08:39] LABS: TRIGLYCERIDE 68 MG/DL (< 150)
[2016-07-10 05:32] LABS: BASOPHILS 0.3 %; BASOPHILS ABSOLUTE 0.04 10/3/uL (0.0-0.16); EOSINOPHILS 1.1 %; EOSINOPHILS ABSOLUTE 0.17 10/3/uL (0.0-0.53); HEMOGLOBIN 9.5 g/dL (13.6-17.8); IMMATURE GRANULOCYTES 0.3 %; IMMATURE GRANULOCYTES ABSOLUTE 0.04 10/3/uL (0.0-0.11); LYMPHOCYTES 7.6 %; LYMPHOCYTES ABSOLUTE 1.19 10/3/uL (0.67-4.30); MEAN CORPUS HGB CONC 30.4 g/dL (32.0-36.0); MEAN CORPUSCULAR HEMOGLOB 24.3 pg (26.0-34.0); MEAN CORPUSCULAR VOLUME 79.8 fL (80-100); MEAN PLATELET VOLUME 10.4 fL (9.2-13.0); MONOCYTES 7.3 %; MONOCYTES ABSOLUTE 1.14 10/3/uL (0.21-1.20); NEUTROPHILS 83.4 %; NEUTROPHILS ABSOLUTE 13.07 10/3/uL (2.02-8.40); PLATELET COUNT 316 10/3/uL (150-400); RBC DISTRIBUTION WIDTH 18.6 % (12.0-16.0); RED CELL COUNT 3.91 10/6/uL (4.7-6.1)
[2016-07-10 05:39] LABS: HEMATOCRIT 31.2 % (40.0-51.0); MANUAL DIFF NO %; WHITE BLOOD CELLS 15.7 10/3/uL (4.5-10.5)
[2016-07-10 05:41] LABS: CHLORIDE, SERUM 109 MMOL/L (96-112); CO2 (CARBON DIOXIDE) 28 MMOL/L (24-34); FREE T4 1.62 NG/DL (0.76-1.46); GFR AFRICAN AMERICAN 90 ML/MIN (>=60); GFR NON AFRICAN AMERICAN 78 ML/MIN (>=60); GLUCOSE, SERUM 155 MG/DL (60-99); POTASSIUM, SERUM 4.5 MMOL/L (3.5-5.3); SODIUM, SERUM 142 MMOL/L (135-148)
[2016-07-10 05:43] LABS: BUN (BLOOD UREA NITROGEN) 14 MG/DL (6-23)
[2016-07-11 06:02] LABS: BASOPHILS 0.2 %; BASOPHILS ABSOLUTE 0.02 10/3/uL (0.0-0.16); EOSINOPHILS 2.1 %; EOSINOPHILS ABSOLUTE 0.27 10/3/uL (0.0-0.53); HEMATOCRIT 33.6 % (40.0-51.0); HEMOGLOBIN 10.5 g/dL (13.6-17.8); IMMATURE GRANULOCYTES 0.3 %; IMMATURE GRANULOCYTES ABSOLUTE 0.04 10/3/uL (0.0-0.11); LYMPHOCYTES 12.4 %; LYMPHOCYTES ABSOLUTE 1.58 10/3/uL (0.67-4.30); MEAN CORPUS HGB CONC 31.3 g/dL (32.0-36.0); MEAN CORPUSCULAR HEMOGLOB 24.7 pg (26.0-34.0); MEAN CORPUSCULAR VOLUME 79.1 fL (80-100); MEAN PLATELET VOLUME 10.3 fL (9.2-13.0); MONOCYTES 5.3 %; MONOCYTES ABSOLUTE 0.68 10/3/uL (0.21-1.20); NEUTROPHILS 79.7 %; NEUTROPHILS ABSOLUTE 10.14 10/3/uL (2.02-8.40); PLATELET COUNT 313 10/3/uL (150-400); RBC DISTRIBUTION WIDTH 18.9 % (12.0-16.0); RED CELL COUNT 4.25 10/6/uL (4.7-6.1); WHITE BLOOD CELLS 12.7 10/3/uL (4.5-10.5)
[2016-07-11 06:03] LABS: MANUAL DIFF NO %
[2016-07-11 06:14] LABS: BUN (BLOOD UREA NITROGEN) 14 MG/DL (6-23); CALCIUM, SERUM 9.6 MG/DL (8.5-10.4); CHLORIDE, SERUM 102 MMOL/L (96-112); CO2 (CARBON DIOXIDE) 31 MMOL/L (24-34); CREATININE 1.15 MG/DL (0.70-1.30); GFR AFRICAN AMERICAN 67 ML/MIN (>=60); GFR NON AFRICAN AMERICAN 58 ML/MIN (>=60); GLUCOSE, SERUM 155 MG/DL (60-99); POTASSIUM, SERUM 3.8 MMOL/L (3.5-5.3); SODIUM, SERUM 135 MMOL/L (135-148)
[2016-07-11 06:54] LABS: PROCALCITONIN 0.19 ng/mL (<0.5)
[2016-07-12 06:00] LABS: CALCIUM, SERUM 9.1 MG/DL (8.5-10.4); CHLORIDE, SERUM 103 MMOL/L (96-112); CO2 (CARBON DIOXIDE) 31 MMOL/L (24-34); CREATININE 1.05 MG/DL (0.70-1.30); GFR AFRICAN AMERICAN 75 ML/MIN (>=60); GFR NON AFRICAN AMERICAN 64 ML/MIN (>=60); POTASSIUM, SERUM 4.3 MMOL/L (3.5-5.3); SODIUM, SERUM 138 MMOL/L (135-148)
[2016-07-12 06:01] LABS: BUN (BLOOD UREA NITROGEN) 19 MG/DL (6-23); GLUCOSE, SERUM 105 MG/DL (60-99); PHOSPHORUS, SERUM 3.1 MG/DL (2.5-4.5)
[2016-07-13] MEDS ORDERED: MIRALAX POWDER1 PKT PO (09:32)
== END 2016-07-13 11:08 | disposition home health service (06) | DRG 438 ==
LOC: 5NO 17:36
PROVIDERS: Internal Medicine; Internal Medicine Gastroenterology
DX: K85.90 Acute pancreatitis without necrosis or infection, unspecified (principal); I50.23 Acute on chronic systolic (congestive) heart failure; K86.3 Pseudocyst of pancreas; E11.9 Type 2 diabetes mellitus without complications; Z95.810 Presence of automatic (implantable) cardiac defibrillator; Z95.5 Presence of coronary angioplasty implant and graft; I25.10 Atherosclerotic heart disease of native coronary artery without angina pectoris; Z79.4 Long term (current) use of insulin; E78.5 Hyperlipidemia, unspecified; Z79.84 Long term (current) use of oral hypoglycemic drugs
CPT/HCPCS: 71010; 71020; 74000; 74177; 80048; 80053; 80069; 82565; 82947; 82962; 83615; 83690; 83735; 84145; 84439; 84443; 84478; 84484; 85025; 93005; 94640; 94667; 94668; A9270-GY; C9113; Q9967